=== PATIENT | female | born 1960 | race Hispanic/Latino ===

== ENCOUNTER 2018-02-12 05:30 | Day surgery (SDC) | payer OTHER ==
[~2018-02-12] VITALS: Ht 157.5 cm; Wt 69.2 kg
[~2018-02-12 05:30] MED LIST: ALBU0.63 IH; ALBU4TAB5 PO; ALPR2TAB2 PO; BISM262T15 PO; BUDE10.2 IH; CALC600T12 PO; CHOL200013 PO; CYAN250014 INJ; LINA145C PO; LISI-617 PO; LURA20TA PO; MULT-1203 PO
[2018-02-12] MEDS ORDERED: SODIUM CHLORIDE 0.9% 1000ML 1,000 ML IV ONE (05:45)
[2018-02-12 06:05] VITALS: BP 97/41
[2018-02-12] MEDS ORDERED: PROPOFOL 1000 MG/100 ML 100 ML IV ONE (07:54)
[2018-02-12] MEDS ORDERED: EPHEDRINE SULFATE 50 MG/ML AMPULE ONE (08:16)
[2018-02-12 08:21] VITALS: BP 95/46
[2018-02-12 08:27] VITALS: BP 115/43
[2018-02-12 08:32] VITALS: BP 98/61
== END 2018-02-12 08:46 | disposition home or self-care (01) ==
LOC: DAH 05:30 → ENDO 05:30
PROVIDERS: ATTEND Internal Medicine
DX: K64.0 First degree hemorrhoids (principal); K21.0 Gastro-esophageal reflux disease with esophagitis; Z98.84 Bariatric surgery status; I10 Essential (primary) hypertension; I25.10 Atherosclerotic heart disease of native coronary artery without angina pectoris; K63.89 Other specified diseases of intestine; K52.9 Noninfective gastroenteritis and colitis, unspecified; J45.909 Unspecified asthma, uncomplicated; K21.9 Gastro-esophageal reflux disease without esophagitis; F32.9 Major depressive disorder, single episode, unspecified; F41.9 Anxiety disorder, unspecified; D64.9 Anemia, unspecified; Z79.899 Other long term (current) drug therapy; R19.4 Change in bowel habit
CPT/HCPCS: 43239; 45380; A4606; J2704; J3490; J7030

== ENCOUNTER 2018-10-29 15:56 | Observation (INO) | payer OTHER ==
[~2018-10-29] VITALS: Ht 154.9 cm; Wt 63.1 kg
[2018-10-29 16:33] LABS: BASOPHILS % (AUTO) 1.1 % (0.0-5.0); EOSINOPHILS % (AUTO) 2.7 % (0.0-8.0); LYMPHOCYTES % (AUTO) 28.8 % (21.0-51.0); MEAN CORPUSCULAR HEMOGLOBIN 19.7 pg (27.0-33.0); MEAN CORPUSCULAR HGB CONC 29.5 g/dL (32.0-36.0); MEAN CORPUSCULAR VOLUME 66.8 fL (79-99); NEUTROPHILS % (AUTO) 58.4 % (40.0-77.0); PLATELET COUNT (AUTO) 323 K/uL (130-400); RED BLOOD CELL COUNT(AUTO) 3.09 MIL/uL (4.00-5.50); RED CELL DISTRIBUTION WIDTH 20.6 % (11.0-15.5); WHITE BLOOD COUNT (AUTO) 6.4 K/uL (4.8-10.8)
[2018-10-29 16:37] LABS: HEMATOCRIT 20.7 % (36-48)
[2018-10-29 17:00] VITALS: BP 125/66
[2018-10-29 20:00] VITALS: BP 135/78
[2018-10-29] MEDS ORDERED: SODIUM CHLORIDE 0.9% 1000ML 1,000 ML IV SCH (20:15)
[2018-10-29] MEDS ORDERED: ALPRAZOLAM 1 MG TAB PO SCH (21:00)
[2018-10-30] VITALS: BP 112/68
[2018-10-30 02:58] LABS: HEMATOCRIT 25.8 % (36-48)
[2018-10-30 04:00] VITALS: BP 99/61
--- NOTE | 2018-10-30 07:00 | NUR ---
Hgb from 6.[address] Fernandez twice 0615 and 0638 if 3rd unit PRBC still needed to be transfused. No return call until this time. Reported to AM nurse.
[2018-10-30 08:00] VITALS: BP 113/69
--- NOTE | 2018-10-30 08:00 | NUR ---
AM SHIFT ASSESSMENT. PENDING 1 UNIT OF BLOOD TO BE GIVEN,
--- NOTE | 2018-10-30 11:10 | NUR ---
3RD AND LAST UNIT OF BLOOD UP NOW.
[2018-10-30 12:00] VITALS: BP 115/67
--- NOTE | 2018-10-30 12:08 | NUR ---
DCP CM met with pt discussed dc plans. Pt is independent prior to admission, lives at home with spouse. Denies any equipments/services. Pt feels safe to go back home, still works and drives, spouse able to assist with transportation and needs as necessary. DC plan to home once stable. CM to cont to follow up. Addendum: 10/30/18 at 1213 by ELSI TAI LVN CM Amended: Links added.
--- NOTE | 2018-10-30 12:30 | NUR ---
DR. GUERRIER IN TO SEE PT. CAN BE DISCHARGED ONCE BLOOD TRANSFUSION IS COMPLETE.
--- NOTE | 2018-10-30 14:30 | NUR ---
BLOOD TRANSFUSION COMPLETE, NO ADVERSE REACTION.
--- NOTE | 2018-10-30 16:45 | NUR ---
DISCHARGED NOW USING TEACH BACK, NO RX, WILL FOLLOW UP WITH DR. GUERRIER SCHEDULED. COMPLETED 3RD. UNIT OF BLOOD PRIOR TO DISCHARGE. STATED FEELING BETTER AND STRONGER SALINE LOCK REMOVED AND ACCOMPANIED TO LOBBY AREA.
== END 2018-10-30 17:50 | disposition home or self-care (01) ==
LOC: EDH 15:56 → EDHIP 15:57 → 3AH 17:07
PROVIDERS: ADMIT Internal Medicine Hematology & Oncology; ATTEND Internal Medicine Hematology & Oncology
DX: D50.0 Iron deficiency anemia secondary to blood loss (chronic) (principal); E11.9 Type 2 diabetes mellitus without complications; I10 Essential (primary) hypertension; J45.909 Unspecified asthma, uncomplicated; K21.9 Gastro-esophageal reflux disease without esophagitis; K74.60 Unspecified cirrhosis of liver; K92.2 Gastrointestinal hemorrhage, unspecified; Z87.891 Personal history of nicotine dependence; Z90.49 Acquired absence of other specified parts of digestive tract; Z98.84 Bariatric surgery status; Z80.3 Family history of malignant neoplasm of breast; Z82.5 Family history of asthma and other chronic lower respiratory diseases; Z79.899 Other long term (current) drug therapy
CPT/HCPCS: 36415 ×2; 36430 ×2; 85014; 85018; 85025; 86850; 86900; 86901; 86922; 99284; G0378 ×16; P9016 ×3

== ENCOUNTER 2021-08-15 20:03 | Emergency (ER) | payer OTHER ==
[~2021-08-15] VITALS: Ht 157.5 cm; Wt 70.3 kg
[~2021-08-15 20:03] MED LIST changes: -ALBU0.63 IH; -ALBU4TAB5 PO; -BISM262T15 PO; -BUDE10.2 IH; -CALC600T12 PO; -CHOL200013 PO; -CYAN250014 INJ; -LINA145C PO; -LISI-617 PO; -LURA20TA PO; -MULT-1203 PO
[2021-08-15] MEDS: HYDROCODONE/ACETAMINOPHEN 10/325 MG TAB PO ONE (23:13)
[2021-08-15] MEDS: KETOROLAC 30MG VIAL (30MG/ML) IM ONE (23:13)
[2021-08-16] MEDS ORDERED: ACET-2079 PO (00:18)
[2021-08-16 00:26] VITALS: BP 129/70
== END 2021-08-16 00:33 | disposition home or self-care (01) ==
LOC: EEVIPCON 20:03 → EDH 20:03
DX: S63.502A Unspecified sprain of left wrist, initial encounter (principal); S00.11XA Contusion of right eyelid and periocular area, initial encounter; S90.31XA Contusion of right foot, initial encounter; S09.90XA Unspecified injury of head, initial encounter; F41.9 Anxiety disorder, unspecified; I10 Essential (primary) hypertension; J45.909 Unspecified asthma, uncomplicated; Z79.1 Long term (current) use of non-steroidal anti-inflammatories (NSAID); Z88.0 Allergy status to penicillin; Z88.5 Allergy status to narcotic agent; Z90.49 Acquired absence of other specified parts of digestive tract; W18.39XA Other fall on same level, initial encounter; Y93.89 Activity, other specified; Y92.89 Other specified places as the place of occurrence of the external cause; Y99.8 Other external cause status
CPT/HCPCS: 70450; 70486; 73110; 73630; 96372; 99284; J1885

== ENCOUNTER 2021-10-23 13:03 | Emergency (ER) | payer OTHER ==
[~2021-10-23] VITALS: Ht 157.5 cm; Wt 68.9 kg
[~2021-10-23 13:03] MED LIST changes: +ACET-2079 PO
[2021-10-23 13:51] LABS: BASOPHILS % (AUTO) 0.1 % (0.0-5.0); HEMATOCRIT 30.6 % (36-48); LYMPHOCYTES % (AUTO) 7.5 % (21.0-51.0); MEAN CORPUSCULAR HEMOGLOBIN 29.6 pg (27.0-33.0); MEAN CORPUSCULAR VOLUME 87.2 fL (79-99); PLATELET COUNT (AUTO) 338 K/uL (130-400); RED BLOOD CELL COUNT(AUTO) 3.51 MIL/uL (4.00-5.50); RED CELL DISTRIBUTION WIDTH 15.5 % (11.0-15.5); WHITE BLOOD COUNT (AUTO) 15.9 K/uL (4.8-10.8)
[2021-10-23] MEDS: 0.9%NACL 1000ML 1,000 ML IV ONE (13:54)
[2021-10-23 14:19] LABS: ALBUMIN 2.8 g/dL (3.5-5.0); POTASSIUM 4.4 mmol/L (3.5-5.1); TOTAL PROTEIN, SERUM 6.2 g/dL (6.0-8.3)
[2021-10-23 14:22] LABS: APPEARANCE,URINE CLEAR (CLEAR); BILIRUBIN,URINE NEGATIVE (NEGATIVE); COLOR,URINE YELLOW (YELLOW); GLUCOSE, URINE (UA) 100 mg/dL (NEGATIVE); KETONES,URINE NEGATIVE (NEGATIVE); LEUKOCYTE ESTERASE ,URINE SMALL (NEGATIVE); NITRATE,URINE NEGATIVE (NEGATIVE); OCCULT BLOOD,URINE NEGATIVE (NEGATIVE); PH,URINE 7.5 (5.0-8.0); PROTEIN,URINE NEGATIVE (NEGATIVE); UROBILINOGEN,URINE 0.2 mg/dL (0.2-1.0)
[2021-10-23] MEDS ORDERED: CIPR-279 PO (14:38)
[2021-10-23] MEDS ORDERED: NIRM1TAB PO (14:38)
[2021-10-23 14:46] LABS: BACTERIA,URINE Moderate /HPF (None Seen); RBC,URINE None Seen /HPF (0-1)
[2021-10-23 14:47] LABS: TRIPLE PHOSPHATE CRYSTAL,UR Few /LPF (None Seen)
[2021-10-23 14:59] VITALS: BP 145/64
== END 2021-10-23 15:28 | disposition home or self-care (01) ==
LOC: EDH 13:03
DX: U07.1 COVID-19 (principal); F41.9 Anxiety disorder, unspecified; I10 Essential (primary) hypertension; J45.909 Unspecified asthma, uncomplicated; Z88.5 Allergy status to narcotic agent; Z88.0 Allergy status to penicillin; Z90.49 Acquired absence of other specified parts of digestive tract
CPT/HCPCS: 36415; 71045; 80053; 81001; 85025; 87077; 87088; 87186

== ENCOUNTER 2022-07-08 12:44 | Inpatient (IN) | payer OTHER ==
[~2022-07-08] VITALS: Ht 157.5 cm; Wt 66.7 kg
[~2022-07-08 12:44] MED LIST changes: +CIPR-279 PO; +NIRM1TAB PO
[2022-07-08 14:25] LABS: APPEARANCE,URINE TURBID (CLEAR); BASOPHILS % (AUTO) 0.3 % (0.0-5.0); BILIRUBIN,URINE NEGATIVE (NEGATIVE); COLOR,URINE YELLOW (YELLOW); EOSINOPHILS % (AUTO) 1.6 % (0.0-8.0); GLUCOSE, URINE (UA) NEGATIVE (NEGATIVE); HEMATOCRIT 28.4 % (36-48); KETONES,URINE 20 mg/dL (NEGATIVE); LEUKOCYTE ESTERASE ,URINE 500 Leu/uL (NEGATIVE); LYMPHOCYTES % (AUTO) 18.8 % (21.0-51.0); MEAN CORPUSCULAR HEMOGLOBIN 28.6 pg (27.0-33.0); MEAN CORPUSCULAR HGB CONC 32.7 g/dL (32.0-36.0); MEAN CORPUSCULAR VOLUME 87.4 fL (79-99); MONOCYTES % (AUTO) 11.5 % (3.0-13.0); NEUTROPHILS % (AUTO) 67.3 % (40.0-77.0); NITRATE,URINE 2+ (NEGATIVE); OCCULT BLOOD,URINE MODERATE (NEGATIVE); PLATELET COUNT (AUTO) 133 K/uL (130-400); PROTEIN,URINE 30 mg/dL (NEGATIVE); RED BLOOD CELL COUNT(AUTO) 3.25 MIL/uL (4.00-5.50); RED CELL DISTRIBUTION WIDTH 14.8 % (11.0-15.5); UROBILINOGEN,URINE 0.2 mg/dL (0.2-1.0); WHITE BLOOD COUNT (AUTO) 8.7 K/uL (4.8-10.8)
[2022-07-08] MEDS ORDERED: ONDANSETRON 4MG INJ IVP ONE (14:30)
[2022-07-08] MEDS ORDERED: 0.9%NACL 1000ML 1,000 ML IV ONE ×2 (14:30→16:30)
[2022-07-08] MEDS ORDERED: KETOROLAC 15MG/ML VIAL (15MG/ML) IV ONE (14:30)
[2022-07-08 14:38] LABS: CREATININE 0.7 mg/dL (0.5-1.5); POTASSIUM 4.2 mmol/L (3.5-5.1)
[2022-07-08 14:39] LABS: MUCUS,URINE RARE LPF (None Seen); SQUAMOUS EPITHELIAL CELL,UR RARE /HPF (0-2); WBC,URINE TNTC /HPF (0-1)
[2022-07-08 14:40] LABS: BACTERIA,URINE MOD /HPF (None Seen)
[2022-07-08 14:43] LABS: TOTAL PROTEIN, SERUM 7.2 g/dL (6.0-8.3)
[2022-07-08] MEDS ORDERED: LEVOFLOXACIN 750 MG/D5W 150ML BAG IVPB SCH (16:30)
[2022-07-08] MEDS ORDERED: KETOROLAC 15MG/ML VIAL (15MG/ML) IV PRN (17:30)
[2022-07-08 17:54] LABS: INR 0.98 (0.85-1.15); PROTHROMBIN TIME 10.7 SEC (9.6-11.6)
[2022-07-08 17:55] LABS: PARTIAL THROMBOPLASTIN TIME 26.4 SEC (26.3-35.5)
[2022-07-08 18:11] LABS: AMYLASE 21 U/L (25-115); CHOLESTEROL 142 mg/dL (<200); HDL CHOLESTEROL 41 mg/dL (35-85); LDL DIRECT 81 mg/dL (0-99); THYROID STIMULATING HORMONE 0.13 uIU/mL (0.36-3.74); TRIGLYCERIDES 138 mg/dL (30-200)
[2022-07-08 18:19] LABS: LIPASE < 50 U/L (114-286)
[2022-07-08 18:21] LABS: HEMOGLOBIN A1C 5.5 % (4.0-6.0)
[2022-07-08] MEDS: FAMOTIDINE 20MG VIAL IV SCH (18:24)
[2022-07-08] MEDS: ACETAMINOPHEN 500 MG TABLET PO PRN (18:52)
[2022-07-08] MEDS: 0.9%NACL 1000ML 1,000 ML IV SCH (18:59)
[2022-07-08] MEDS ORDERED: IPRATROPIUM/ALBUTEROL SULFATE 3 ML SOLUTION IH PRN (19:30)
[2022-07-08] MEDS: BUDESONIDE 0.5 MG/2 ML INH IH SCH (20:36)
[2022-07-08] MEDS: ALPRAZOLAM 1 MG TAB PO SCH (20:55)
[2022-07-09 04:57] LABS: BASOPHILS % (AUTO) 0.3 % (0.0-5.0); EOSINOPHILS % (AUTO) 3.1 % (0.0-8.0); HEMATOCRIT 24.1 % (36-48); LYMPHOCYTES % (AUTO) 20.4 % (21.0-51.0); MEAN CORPUSCULAR HEMOGLOBIN 29.2 pg (27.0-33.0); MEAN CORPUSCULAR HGB CONC 33.2 g/dL (32.0-36.0); MONOCYTES % (AUTO) 12.5 % (3.0-13.0); NEUTROPHILS % (AUTO) 63.3 % (40.0-77.0); PLATELET COUNT (AUTO) 94 K/uL (130-400); RED BLOOD CELL COUNT(AUTO) 2.74 MIL/uL (4.00-5.50); WHITE BLOOD COUNT (AUTO) 6.7 K/uL (4.8-10.8)
[2022-07-09] MEDS: 0.9%NACL 1000ML 1,000 ML IV SCH ×2 (05:09→18:35)
[2022-07-09] MEDS: FAMOTIDINE 20MG VIAL IV SCH ×2 (05:10→18:35)
[2022-07-09 05:19] LABS: ALBUMIN 2.2 g/dL (3.5-5.0); CREATININE 0.6 mg/dL (0.5-1.5); CRP QUANTITATIVE 87.6 mg/L (0.00-9.0); POTASSIUM 4.2 mmol/L (3.5-5.1); TOTAL PROTEIN, SERUM 5.5 g/dL (6.0-8.3)
[2022-07-09] MEDS: BUDESONIDE 0.5 MG/2 ML INH IH SCH (06:28)
[2022-07-09] MEDS: ONDANSETRON 4MG INJ IVP PRN ×2 (08:02→14:32)
[2022-07-09] MEDS ORDERED: LACTATED RINGERS 1000ML 1,503 ML IV ONE (10:00)
[2022-07-09] MEDS: THIAMINE HCL 100 MG/ML 2ML VIAL IVP SCH (12:26)
[2022-07-09] MEDS: LEVOFLOXACIN 500 MG/D5W 100 ML 100 ML IV SCH (18:35)
[2022-07-09] MEDS ORDERED: LOPERAMIDE 1 MG/7.5 ML UDCUP PO PRN (20:00)
[2022-07-09] MEDS ORDERED: LOPERAMIDE HCL 2 MG CAP PO ONE (20:57)
[2022-07-09] MEDS: ALPRAZOLAM 1 MG TAB PO SCH (21:12)
[2022-07-09 23:00] VITALS: BP 113/61
[2022-07-10] MEDS ORDERED: GLYC2TAB21 PO (01:29)
[2022-07-10] MEDS ORDERED: TRAZ-187 PO (01:29)
[2022-07-10] MEDS ORDERED: FLUT1BLS12 IH (01:29)
[2022-07-10] MEDS ORDERED: LISI5TAB21 PO (01:29)
[2022-07-10] MEDS ORDERED: ALBU90AE2 IH (01:33)
[2022-07-10 04:00] VITALS: BP 100/59
[2022-07-10] MEDS: 0.9%NACL 1000ML 1,000 ML IV SCH ×2 (05:22→19:59)
[2022-07-10] MEDS: FAMOTIDINE 20MG VIAL IV SCH ×2 (05:22→17:14)
[2022-07-10 05:43] LABS: BASOPHILS % (AUTO) 0.2 % (0.0-5.0); EOSINOPHILS % (AUTO) 3.7 % (0.0-8.0); HEMATOCRIT 21.9 % (36-48); LYMPHOCYTES % (AUTO) 28.9 % (21.0-51.0); MEAN CORPUSCULAR HEMOGLOBIN 28.8 pg (27.0-33.0); MEAN CORPUSCULAR HGB CONC 32.9 g/dL (32.0-36.0); MEAN CORPUSCULAR VOLUME 87.6 fL (79-99); MONOCYTES % (AUTO) 11.8 % (3.0-13.0); PLATELET COUNT (AUTO) 89 K/uL (130-400); RED CELL DISTRIBUTION WIDTH 14.9 % (11.0-15.5); WHITE BLOOD COUNT (AUTO) 5.4 K/uL (4.8-10.8)
[2022-07-10 06:16] LABS: ALBUMIN 2.3 g/dL (3.5-5.0); CREATININE 0.6 mg/dL (0.5-1.5); MAGNESIUM 1.6 mg/dL (1.80-2.40); POTASSIUM 3.2 mmol/L (3.5-5.1); TOTAL PROTEIN, SERUM 5.3 g/dL (6.0-8.3)
[2022-07-10 08:30] VITALS: BP 122/57
[2022-07-10] MEDS ORDERED: POTASSIUM CHLORIDE 10% ELIXIR 20 MEQ/15 ML UDCUP PO PRN (08:30)
[2022-07-10] MEDS ORDERED: POTASSIUM CHLORIDE 20MEQ/100ML 100 ML IV PRN (08:30)
[2022-07-10] MEDS: THIAMINE HCL 100 MG/ML 2ML VIAL IVP SCH (08:41)
[2022-07-10] MEDS: KCL 20 MEQ ERTAB PO PRN ×3 (08:42→20:08)
[2022-07-10] MEDS: MAGNESIUM 2GM PREMIX 50ML 50 ML IV PRN (08:43)
[2022-07-10] MEDS: ONDANSETRON 4MG INJ IVP PRN (08:54)
[2022-07-10 12:19] VITALS: BP 76/28
[2022-07-10 12:20] VITALS: BP_SYST 112; BP_SYST 120; BP_DIAS 58; BP_DIAS 65
[2022-07-10 16:30] VITALS: BP 121/57
[2022-07-10] MEDS: LEVOFLOXACIN 500 MG/D5W 100 ML 100 ML IV SCH (17:14)
[2022-07-10 19:55] VITALS: BP 94/54
[2022-07-10] MEDS: ALPRAZOLAM 1 MG TAB PO SCH (19:59)
[2022-07-11] VITALS (8 sets, daily range): BP systolic 91–140; BP diastolic 50–69
[2022-07-11] MEDS: FAMOTIDINE 20MG VIAL IV SCH ×2 (05:08→17:42)
[2022-07-11 07:35] LABS: HEMATOCRIT 23.2 % (36-48); MEAN CORPUSCULAR HEMOGLOBIN 28.7 pg (27.0-33.0); MEAN CORPUSCULAR HGB CONC 32.8 g/dL (32.0-36.0); MEAN CORPUSCULAR VOLUME 87.5 fL (79-99); RED BLOOD CELL COUNT(AUTO) 2.65 MIL/uL (4.00-5.50); RED CELL DISTRIBUTION WIDTH 15.5 % (11.0-15.5); WHITE BLOOD COUNT (AUTO) 4.6 K/uL (4.8-10.8)
[2022-07-11 07:57] LABS: CREATININE 0.6 mg/dL (0.5-1.5)
[2022-07-11] MEDS: MAGNESIUM 2GM PREMIX 50ML 50 ML IV PRN (09:41)
[2022-07-11] MEDS: 0.9%NACL 1000ML 1,000 ML IV SCH ×2 (09:42→22:06)
[2022-07-11] MEDS: THIAMINE HCL 100 MG/ML 2ML VIAL IVP SCH (09:42)
[2022-07-11 10:04] LABS: ALANINE AMINOTRANSFERASE 24 U/L (12-78); ALBUMIN 2.3 g/dL (3.5-5.0); AMYLASE 15 U/L (25-115); ASPARTATE AMINOTRANSFERASE 18 U/L (10-37); BILIRUBIN,DIRECT < 0.1 mg/dL (0.0-0.3); TOTAL PROTEIN, SERUM 5.6 g/dL (6.0-8.3)
[2022-07-11 10:05] LABS: LIPASE < 50 U/L (114-286)
[2022-07-11] MEDS ORDERED: PHARMACY COMMUNICATION MISC SCH (13:00)
[2022-07-11] MEDS: MEROPENEM 1 GM VIAL IVP SCH ×2 (14:23→19:10)
[2022-07-11] MEDS: ACETAMINOPHEN 500 MG TABLET PO PRN (16:18)
[2022-07-11] MEDS: ONDANSETRON 4MG INJ IVP PRN (17:47)
[2022-07-11 19:45] LABS: INR 1.14 (0.85-1.15); PROTHROMBIN TIME 12.3 SEC (9.6-11.6)
[2022-07-11] MEDS: ALPRAZOLAM 1 MG TAB PO SCH (22:06)
[2022-07-12] MEDS: MEROPENEM 1 GM VIAL IVP SCH ×2 (03:12→10:04)
[2022-07-12 03:22] VITALS: BP 121/68
[2022-07-12] MEDS: FAMOTIDINE 20MG VIAL IV SCH (05:01)
[2022-07-12 08:44] VITALS: BP 150/77
[2022-07-12 11:48] VITALS: BP 138/53
[2022-07-12] MEDS ORDERED: FAMO40TA75 PO (12:42)
[2022-07-12 16:54] VITALS: BP 140/62
== END 2022-07-12 16:45 | disposition home or self-care (01) | DRG 872 ==
LOC: EDH 12:44 → EDHIP 17:27 → 2AH 07-09 22:30
PROVIDERS: ADMIT Internal Medicine; ATTEND Internal Medicine
DX: A41.50 Gram-negative sepsis, unspecified (principal); E87.1 Hypo-osmolality and hyponatremia; N30.00 Acute cystitis without hematuria; Z16.12 Extended spectrum beta lactamase (ESBL) resistance; E86.1 Hypovolemia; E86.0 Dehydration; F32.A Depression, unspecified; J84.10 Pulmonary fibrosis, unspecified; Z20.822 Contact with and (suspected) exposure to COVID-19; F41.1 Generalized anxiety disorder; I10 Essential (primary) hypertension; E66.9 Obesity, unspecified; D69.6 Thrombocytopenia, unspecified; K21.9 Gastro-esophageal reflux disease without esophagitis; M06.9 Rheumatoid arthritis, unspecified; D50.9 Iron deficiency anemia, unspecified; G89.29 Other chronic pain; Z88.0 Allergy status to penicillin; Z79.899 Other long term (current) drug therapy; Z68.26 Body mass index [BMI] 26.0-26.9, adult
CPT/HCPCS: 36415; 71045; 71250; 74176; 80048; 80053; 80061; 80076; 81001; 82150; 82270; 82607; 82746; 82948; 83036; 83605; 83690; 83735; 84145; 84439; 84443; 84481; 84484; 85025; 85027; 85610; 85651; 85730; 86038; 86140; 86148; 86255; 87040; 87077; 87088; 87186; 87324; 87635; 87804; 93005; 94640; 94664; G0378; J1885; J1956; J2185; J2405; J3411; J3475; J3490; J7030

== ENCOUNTER → 2022-10-05 | Outpatient (CLI) | payer SELFPAY ==
[~2022-10-05] MED LIST changes: -ACET-2079 PO; +ALBU90AE2 IH; -CIPR-279 PO; +FAMO40TA75 PO; +FLUT1BLS12 IH; +GLYC2TAB21 PO; +IOHEXOL 350 MG/ML 100ML INFUS..BTL IV ONE; +LISI5TAB21 PO; +TRAZ-187 PO
== END | disposition home or self-care (01) ==
LOC: RAH 15:22
PROVIDERS: ATTEND Student in an Organized Health Care Education/Training Program
DX: I26.99 Other pulmonary embolism without acute cor pulmonale (principal)
CPT/HCPCS: 71270; Q9967

== ENCOUNTER 2023-05-22 08:21 | Day surgery (SDC) | payer OTHER ==
[2023-05-17 10:23] LABS: BASOPHILS # (AUTO) 0.04 K/uL (0.00-0.20); BASOPHILS % (AUTO) 0.4 % (0.0-5.0); EOSINOPHILS # (AUTO) 0.09 K/uL (0.00-0.70); EOSINOPHILS % (AUTO) 0.8 % (0.0-8.0); HEMATOCRIT 35.8 % (36-48); IMMATURE GRANULOCYTE ABSOLUTE 0.17 K/uL (0-1); LYMPHOCYTES # (AUTO) 3.1 K/uL (1.0-4.8); LYMPHOCYTES % (AUTO) 27.8 % (21.0-51.0); MEAN CORPUSCULAR HEMOGLOBIN 34.9 pg (27.0-33.0); MEAN CORPUSCULAR HGB CONC 33.2 g/dL (32.0-36.0); MONOCYTES # (AUTO) 0.8 K/uL (0.1-1.0); MONOCYTES % (AUTO) 7.3 % (3.0-13.0); NEUTROPHILS # (AUTO) 6.9 K/uL (1.8-7.7); NEUTROPHILS % (AUTO) 62.2 % (40.0-77.0); PLATELET COUNT (AUTO) 245 K/uL (130-400); RED BLOOD CELL COUNT(AUTO) 3.41 MIL/uL (4.00-5.50); RED CELL DISTRIBUTION WIDTH 13.3 % (11.0-15.5); WHITE BLOOD COUNT (AUTO) 11.1 K/uL (4.8-10.8)
[2023-05-17 10:31] LABS: CREATININE 0.6 mg/dL (0.5-1.5); POTASSIUM 3.9 mmol/L (3.5-5.1)
[2023-05-17 10:33] LABS: INR 0.94 (0.85-1.15); PROTHROMBIN TIME 10.9 SEC (9.6-11.6)
[2023-05-17 10:34] LABS: PARTIAL THROMBOPLASTIN TIME 25.8 SEC (26.3-35.5)
[2023-05-17 10:54] VITALS: BP 137/64; PULSE 52; RESP 18
[~2023-05-22] VITALS: Ht 157.5 cm; Wt 50.6 kg
[2023-05-22] VITALS (8 sets, daily range): BP systolic 102–137; BP diastolic 45–60; PULSE 60–66; RESP 15–17
[~2023-05-22 08:21] MED LIST changes: -ALBU90AE2 IH; +ALBUTEROL IH; -ALPR2TAB2 PO; +ALPR2TAB7 PO; +CYAN10007 IJ; +ESOM40CA54 PO; -FAMO40TA75 PO; +FLUD0.1T2 PO; +FLUT15.845 NS; -GLYC2TAB21 PO; +HYDR20TA24 PO; -IOHEXOL 350 MG/ML 100ML INFUS..BTL IV ONE; +IPRA3AMP24 IH; -LISI5TAB21 PO; +MIDO10TA PO; +MONT-39 PO; -NIRM1TAB PO; +ONDA8TAB12 PO; +TIOT4MIS5 IH; -TRAZ-187 PO; +TRINTELLIX PO
[2023-05-22 08:53] LABS: BASOPHILS # (AUTO) 0.04 K/uL (0.00-0.20); BASOPHILS % (AUTO) 0.3 % (0.0-5.0); EOSINOPHILS # (AUTO) 0.16 K/uL (0.00-0.70); EOSINOPHILS % (AUTO) 1.2 % (0.0-8.0); IMMATURE GRANULOCYTE ABSOLUTE 0.09 K/uL (0-1); LYMPHOCYTES # (AUTO) 2.1 K/uL (1.0-4.8); LYMPHOCYTES % (AUTO) 15.9 % (21.0-51.0); MEAN CORPUSCULAR HEMOGLOBIN 34.4 pg (27.0-33.0); MEAN CORPUSCULAR HGB CONC 34.9 g/dL (32.0-36.0); MEAN CORPUSCULAR VOLUME 98.7 fL (79-99); MONOCYTES # (AUTO) 0.7 K/uL (0.1-1.0); MONOCYTES % (AUTO) 5.7 % (3.0-13.0); NEUTROPHILS % (AUTO) 76.2 % (40.0-77.0); PLATELET COUNT (AUTO) 194 K/uL (130-400); RED BLOOD CELL COUNT(AUTO) 3.75 MIL/uL (4.00-5.50); WHITE BLOOD COUNT (AUTO) 13.1 K/uL (4.8-10.8)
[2023-05-22] MEDS ORDERED: 0.9%NACL 1000ML 1,000 ML IV ONE (09:34)
[2023-05-22] MEDS ORDERED: LIDOCAINE HCL 1% MDV 50ML VIAL ONE (10:10)
[2023-05-22] MEDS ORDERED: BUPIVACAINE/PF 0.25% 30ML VIAL IJ ONE (10:10)
[2023-05-22] MEDS ORDERED: IOHEXOL-350 50ML VIAL IV ONE (10:10)
[2023-05-22] MEDS ORDERED: HYDROCORTISONE SOD SUCCINATE 100 MG/2 ML VIAL ONE (10:22)
[2023-05-22] MEDS: HYDROCORTISONE SOD SUCCINATE 100 MG/2 ML VIAL IV ONE (10:32)
[2023-05-22] MEDS ORDERED: ATROPINE 1MG SYG IVP ONE (10:44)
[2023-05-22] MEDS ORDERED: MIDAZOLAM HCL 1 MG/ML 2ML VIAL ONE ×3 (10:49→11:33)
[2023-05-22] MEDS ORDERED: MEPERIDINE-PF 25 MG/ML SYG ONE ×3 (10:49→11:33)
[2023-05-22] MEDS ORDERED: VANCOMYCIN 1G/250ML KIT 250 ML IV ONE (10:54)
[2023-05-22] MEDS ORDERED: ONDANSETRON 4MG INJ ONE ×2 (11:11→12:16)
[2023-05-22] MEDS ORDERED: TRAM50TA4 PO (12:23)
[2023-05-22] MEDS: ACETAMINOPHEN 500 MG TABLET PO PRN (13:54)
== END 2023-05-22 14:45 | disposition home or self-care (01) ==
LOC: DAH 08:21
PROVIDERS: ATTEND Internal Medicine Cardiovascular Disease
DX: I49.5 Sick sinus syndrome (principal); I45.89 Other specified conduction disorders; I95.1 Orthostatic hypotension; E27.40 Unspecified adrenocortical insufficiency; E78.5 Hyperlipidemia, unspecified; Z79.899 Other long term (current) drug therapy; Z98.890 Other specified postprocedural states; Z98.84 Bariatric surgery status; Z90.49 Acquired absence of other specified parts of digestive tract; Z82.49 Family history of ischemic heart disease and other diseases of the circulatory system; Z83.3 Family history of diabetes mellitus; Z80.9 Family history of malignant neoplasm, unspecified; Z88.8 Allergy status to other drugs, medicaments and biological substances; Z88.0 Allergy status to penicillin; Z79.01 Long term (current) use of anticoagulants
CPT/HCPCS: 80048; 85025 ×2; 85610; 85730; 36415 ×2; 93005; 33208; 71045; C1785; C1898 ×2; J7030; J0665; J1720; J2250 ×3; J2405 ×2; J3370; J2175 ×3; J3490; A4215; A6251; A4222; A4221; A4663; A4216; A6258; A4606; A4223 ×2; 99156; 99157; J0461; Q9967

== ENCOUNTER 2024-01-02 13:26 | Emergency (ER) | payer OTHER ==
[~2024-01-02] VITALS: Ht 154.9 cm; Wt 59.0 kg
[~2024-01-02 13:26] MED LIST changes: -ESOM40CA54 PO; +ESOM40CA66 PO; +ONDA-245 PO; -ONDA8TAB12 PO; +TRAM50TA4 PO
[2024-01-02] MEDS ORDERED: NAPR-1192 PO (15:13)
[2024-01-02] MEDS ORDERED: METH-662 PO (15:13)
[2024-01-02] MEDS: ketOROlac 30MG VIAL (30MG/ML) IM ONE (17:23)
[2024-01-02 17:28] VITALS: O2SAT 96
[2024-01-02 17:30] VITALS: BP 151/92; PULSE 80; RESP 18; TEMP 97.9
== END 2024-01-02 17:47 | disposition home or self-care (01) ==
LOC: EDH 13:26
DX: S29.012A Strain of muscle and tendon of back wall of thorax, initial encounter (principal); F41.9 Anxiety disorder, unspecified; F32.A Depression, unspecified; I10 Essential (primary) hypertension; J45.909 Unspecified asthma, uncomplicated; Z86.16 Personal history of COVID-19; Z79.51 Long term (current) use of inhaled steroids; Z88.0 Allergy status to penicillin; Z88.5 Allergy status to narcotic agent; Z88.7 Allergy status to serum and vaccine; Z95.810 Presence of automatic (implantable) cardiac defibrillator; Z99.81 Dependence on supplemental oxygen; V89.2XXA Person injured in unspecified motor-vehicle accident, traffic, initial encounter; Y93.89 Activity, other specified; Y92.89 Other specified places as the place of occurrence of the external cause; Y99.8 Other external cause status
CPT/HCPCS: 99284; 72040; 72070; 96372; J1885